=== PATIENT | female | born 1950 | race Two or more races ===

== ENCOUNTER 2024-07-13 05:05 | Day surgery (SDC) | payer OTHER ==
[2024-07-06 16:08] LABS: HEMATOCRIT 35.8 % (36.0-45.00); HEMOGLOBIN 11.8 g/dL (12.0-15.00); MEAN CELL VOLUME 90.3 fL (80.00-100.00); MEAN CORPUSCULAR HEMOGLOBIN 29.7 pg (27.00-32.0); MEAN CORPUSCULAR HGB CONC 32.9 g/dl (32.0-36.0); PLATELET COUNT 239 K/uL (150-450); RED BLOOD COUNT 3.96 M/uL (4.00-6.00)
[2024-07-06 16:27] LABS: PARTIAL THROMBOPLASTIN TIME 26.8 SECONDS (22.0-34.0); PROTHROMBIN TIME 10.9 SECONDS (9.0-11.5)
[2024-07-06 17:05] LABS: ALBUMIN 3.8 gm/dL (3.4-5.0); BILIRUBIN TOTAL 0.57 mg/dL (0.3-1.2); CALCIUM 9.9 mg/dL (8.5-10.1); CREATININE SERUM 1.93 mg/dL (0.55-1.02); GFR 25.52; GLOBULINA 3.6 G/DL (2.4-3.5); POTASSIUM 4.36 mEq/L (3.5-5.1); TOTAL PROTEIN 7.4 gm/dL (6.4-8.2)
[~2024-07-13 05:05] MED LIST: ALOPURINOL; ALTACE5 MG PO; CALCITRIOL0.25 MCG PO; FARXIGA10 MG PO; GLIPIZIDE XL5 MG PO; SYNTHROID100 MCG PO
[2024-07-13] MEDS ORDERED: DICLOFENAC SODIUM 100 MG SUPP.RECT TOP ONE (14:30)
[2024-07-13] MEDS ORDERED: MORPHINE SULFATE 4 MG/ML VIAL IV ONE (17:00)
== END 2024-07-13 19:30 | disposition home or self-care (01) ==
LOC: CIR.AMB 05:05
PROVIDERS: ATTEND Internal Medicine
DX: K80.50 Calculus of bile duct without cholangitis or cholecystitis without obstruction (principal); Z88.6 Allergy status to analgesic agent; I10 Essential (primary) hypertension